=== PATIENT | female | born 1985 | race Two or more races ===

== ENCOUNTER 2020-07-07 12:51 | Outpatient (CLI) | payer OTHER ==
--- NOTE | 2020-07-07 15:49 | Ultrasound Report ---
PROCEDURE: Pelvic w/Transvaginal INDICATIONS: IUD SURVEILLANCE TECHNIQUE: Real-time scanning was performed of the pelvic organs, with image documentation. Additional endovagi nal scanning was necessary due to incomplete visualization of the adnexal and endometrial structures by transabdominal scanning. COMPARISON: None. FINDINGS: Transabdominal scanning: Limited scanning through the kidneys shows no hydronephrosis. No pathologi c free abdominal or pelvic fluid. Endovaginal scanning: Uterus: Uterus is normal in size at 3.1 x 5.3 x 9.7 cm. There is fluid within the uterine cavity. T he IUD and retrievable strings are identified within the uterine cavity. The endometrium is obscured by the IUD. Ovaries: Both ovaries are normal in size and appearance. Physiologic follicles are present in both o varies. IMPRESSION: IUD present within the uterus, along with the retrieval strings. Incidentally noted mild hydronephrosis which may be physiologic as the bladder was very distended dur ing image acquisition. Reviewed by: Charly Jarrell MD on 07/07/2020 3:48 PM PST Approved by: Charly Jarrell MD on 07/07/2020 3:48 PM PST Station ID: [id number]
== END 2020-07-07 12:52 | disposition home or self-care (01) ==
LOC: DI 12:51
PROVIDERS: ATTEND Obstetrics & Gynecology
DX: Z30.431 Encounter for routine checking of intrauterine contraceptive device (principal)

== ENCOUNTER 2020-07-23 18:34 | Outpatient (CLI) | payer OTHER | END 2020-07-23 18:35 | disposition home or self-care (01) | LOC: COV 18:34 | PROVIDERS: ATTEND Obstetrics & Gynecology | DX: Z01.812 Encounter for preprocedural laboratory examination (principal); T83.39XA Other mechanical complication of intrauterine contraceptive device, initial encounter; Z20.828 Contact with and (suspected) exposure to other viral communicable diseases ==

== ENCOUNTER 2020-07-27 15:34 | Outpatient (CLI) | payer OTHER | END 2020-07-27 15:35 | disposition home or self-care (01) | LOC: LAB 15:34 | PROVIDERS: ATTEND Obstetrics & Gynecology | DX: Z01.812 Encounter for preprocedural laboratory examination (principal); T83.39XA Other mechanical complication of intrauterine contraceptive device, initial encounter | CPT/HCPCS: 36415; 86850; 86900; 86901 ==

== ENCOUNTER 2020-07-29 13:27 | Day surgery (SDC) | payer OTHER ==
[2020-07-29] MEDS ORDERED: LACTATED RINGERS 1,000 ML IV ONE ×2 (13:54→15:12)
[2020-07-29 14:04] LABS: HCG UR QUAL NEGATIVE
[2020-07-29] MEDS ORDERED: LIDOCAINE 1% 50 ML MDV ONE (14:10)
[2020-07-29] MEDS ORDERED: SILVER NITRATE APPLICATOR TOP ONE (14:11)
[2020-07-29] MEDS ORDERED: ceFAZolin 1 GM VIAL ONE (14:12)
[2020-07-29] MEDS ORDERED: MIDAZOLAM 2 MG/2 ML VIAL ONE (14:15)
[2020-07-29] MEDS ORDERED: fentaNYL 100 MCG/2 ML VIAL ONE (14:15)
[2020-07-29] MEDS ORDERED: LIDOCAINE-MPF 2% 5 ML VIAL ONE (14:17)
[2020-07-29] MEDS ORDERED: ROPIVACAINE 0.2% PF 20ML VIAL ONE (14:17)
--- NOTE | 2020-07-29 14:23 | ANESTHESIA ---
Pre-Anesthesia VS, & Labs - Diagnosis Retained IUD - Procedure Hysterscopic removal of IUD Vital Signs: Temp Pulse Resp BP Pulse Ox 36.7 C 78 16 124/76 97 07/29/20 13:43 07/29/20 13:43 07/29/20 13:43 07/29/20 13:43 07/29/20 13:43 Height: 4 ft 11 in Weight (kg): 58 kg Body Mass Index: 25.8 BMI Classification: Overweight - NPO >8 hours - Is Patient ?: No Home Medications and Allergies Home Medications: Ambulatory Orders No Known Home Medications 07/22/20 No Known Home Medications 07/22/20 Allergies/Adverse Reactions: Allergies Allergy/AdvReac Type Severity Reaction Status Date / Time No Known Drug Allergies Allergy Verified 07/22/20 10:17 Anes History & Medical History - Anesthetic History Anesthesia Complications: reports: Post-Operative Nausea/Vomiting (With ) Family history of Anesthesia Complications: Denies Family history of Malignant Hyperthermia: Denies - Medical History Cardiovascular: reports: None Pulmonary: reports: None Gastrointestinal: reports: None Urinary: reports: None Musculoskeletal: reports: None Endocrine/Autoimmune: reports: None Skin: reports: None Psychosocial: reports: No issues indicated History of Cancer?: No - Surgical History Eyes Ears Nose Throat (EENT): Other Gynecologic: section Exam General: Alert, Oriented x3, Cooperative, No acute distress Dental: WNL Mouth Openin Fingerbreadth Neck Mobility: Normal Thyromental Distance: less than 4 cm Respiratory: Lungs clear Cardiovascular: Regular rate Plan Anesthesia Type: General Consent for Procedure(s) Verified and Reviewed: Yes Code Status: Attempt Resuscitation ASA classification: 4-Incapacitating disease (discussed anesthesia, consent signed) Is this case an emergency?: No
[2020-07-29] MEDS ORDERED: HYDROmorphone 0.5 MG/0.5 ML SYRINGE IVP PRN (14:24)
[2020-07-29] MEDS ORDERED: ATROPINE ABBOJECT 1 MG/10 ML SYRINGE IVP PRN (14:24)
[2020-07-29] MEDS ORDERED: NALOXONE 0.4 MG/ML VIAL IVP PRN (14:24)
[2020-07-29] MEDS ORDERED: METOCLOPRAMIDE 10 MG/2 ML VIAL IVP PRN (14:24)
[2020-07-29] MEDS ORDERED: fentaNYL 100 MCG/2 ML VIAL IVP PRN (14:24)
[2020-07-29] MEDS ORDERED: ONDANSETRON 4 MG/2 ML VIAL IVP PRN ×2 (14:24→15:31)
[2020-07-29] MEDS ORDERED: MORPHINE 2 MG/ML CARPUJECT IVP PRN (14:24)
[2020-07-29] MEDS ORDERED: ePHEDrine 50 MG/ML VIAL IVP PRN (14:24)
[2020-07-29] MEDS ORDERED: BUPIVACAINE 0.5%-EPI 1:200000 PF 30 ML VIAL SUBQ ONE (14:44)
[2020-07-29] MEDS ORDERED: LIDOCAINE 1% 50 ML MDV SUBQ ONE (14:45)
[2020-07-29] MEDS ORDERED: BUPIVACAINE 0.5%-EPI 1:200000 PF 30 ML VIAL ONE (14:52)
[2020-07-29] MEDS ORDERED: LACTATED RINGERS 1,000 ML IV SCH (15:00)
--- NOTE | 2020-07-29 15:18 | OPERATIVE REPORT ---
Operative Report - General Procedure Date: 07/29/20 Planned Procedure: Hysterscopic removal of IUD Pre-Op Diagnosis: retained IUD Procedure Performed: Hysterscopy with removal of Merina IUD - Procedure Note Primary Surgeon: Dong Springer MD Anesthesia Provider: Luda Malin CRNA Anesthesia Technique: General LMA Estimated Blood Loss (mL): 5 Urine Output (mL): 100 Findings: IUD in the uterus with strings with drawn in the cervix
[2020-07-29] MEDS ORDERED: LORazepam 2 MG/ML VIAL IVP PRN (15:31)
[2020-07-29] MEDS ORDERED: oxyCODONE 5 MG TABLET PO PRN (15:31)
[2020-07-29] MEDS ORDERED: DEXAMETHASONE 4 MG/ML VIAL ONE (15:34)
[2020-07-29] MEDS ORDERED: KETOROLAC 30 MG/ML VIAL ONE (15:34)
[2020-07-29] MEDS ORDERED: PROPOFOL 200 MG/20 ML VIAL IVP ONE (15:35)
[2020-07-29 15:53] VITALS: BP 136/68
--- NOTE | 2020-07-29 16:20 | PROCEDURE REPORT ---
DATE OF SERVICE: 07/29/2020 Physician: Dong Springer MD PREOPERATIVE DIAGNOSIS: Retained intrauterine device. POSTOPERATIVE DIAGNOSIS: Retained intrauterine device. PROCEDURE PERFORMED: Hysteroscopic removal of Mirena IUD. SURGEON: Dong Springer MD. ANESTHESIA: Luda Malin CRNA. ESTIMATED BLOOD LOSS: Less than 5 mL. URINE OUTPUT: 100 mL. FINDINGS: Upon placing the speculum, the strings were not visualized at this time, so at time of the hysteroscopy the strings were noted to be residing high in the endocervical canal. The IUD was also residing in the uterus. DESCRIPTION OF PROCEDURE: Following adequate general anesthesia, patient was placed in the dorsal lithotomy position. At this point, she was prepped and draped in the usual fashion. A timeout was performed, in which concerns were addressed. A speculum was placed in the vagina. The cervix was visualized and grasped with a single-tooth tenaculum. At this point, the uterosacral ligaments were injected on both sides with 6 mL of 0.5% Marcaine with epinephrine and 0.5% lidocaine. The cervix was dilated to 6 mm, and a hysteroscope was introduced. There was some difficulty identifying the endocervical canal. However, the IUD strings were visualized, grasped with polyp forceps, and withdrawn. The IUD came out at this time. The cervix was then dilated up the rest of the way and then sounded to 10 cm. The endometrial cavity appeared to be free of any polyps or submucosal fibroids. The orifices both appeared to be normal. At this point, the procedure was terminated. Patient tolerated the procedure well and was taken to recovery in stable condition. Sponge and needle counts correct. TD: 07/29/2020 15:26 [email or web address]
== END 2020-07-29 13:28 | disposition home or self-care (01) ==
LOC: SDS 13:27
PROVIDERS: ATTEND Obstetrics & Gynecology
DX: T83.32XA Displacement of intrauterine contraceptive device, initial encounter (principal); E66.3 Overweight; Z68.25 Body mass index [BMI] 25.0-25.9, adult
CPT/HCPCS: 58562; 81025; J2795; J7120

== ENCOUNTER 2020-10-09 08:00 | Outpatient (CLI) | payer OTHER ==
[2020-10-09 18:19] LABS: ALBUMIN 4.9 g/dL (3.2-5.5); ALBUMIN/GLOBULIN RATIO 1.6 (1.0-2.2); BILIRUBIN,TOTAL 0.9 mg/dL (0.2-1.0); CALCIUM 9.6 mg/dL (8.5-10.3); CREATININE 0.7 mg/dL (0.4-1.0); TOTAL PROTEIN 7.9 g/dL (6.7-8.2)
== END 2020-10-09 08:01 | disposition home or self-care (01) ==
LOC: LAB.WCP 08:00
PROVIDERS: ATTEND Nurse Practitioner Family
DX: B35.1 Tinea unguium (principal)
CPT/HCPCS: 36415; 80053

== ENCOUNTER 2020-11-24 12:08 | Outpatient (CLI) | payer OTHER ==
[2020-11-24 18:08] LABS: ALBUMIN 4.9 g/dL (3.2-5.5); ALBUMIN/GLOBULIN RATIO 1.5 (1.0-2.2); BILIRUBIN,TOTAL 0.6 mg/dL (0.2-1.0); CALCIUM 9.5 mg/dL (8.5-10.3); CREATININE 0.6 mg/dL (0.4-1.0); POTASSIUM 3.7 mmol/L (3.5-5.0); TOTAL PROTEIN 8.1 g/dL (6.7-8.2)
== END 2020-11-24 23:59 | disposition home or self-care (01) ==
LOC: LAB.WCP 12:08
PROVIDERS: ATTEND Nurse Practitioner Family
DX: B35.1 Tinea unguium (principal)
CPT/HCPCS: 36415; 80053